=== PATIENT | female | born 1990 | race Caucasian/White ===

== ENCOUNTER 2018-03-25 21:27 | Emergency (ER) | payer OTHER ==
[2018-03-25] MEDS ORDERED: HALOPERIDOL LACTATE INJ 5 MG/1 ML VIAL IV ONE (22:03)
[2018-03-25] MEDS ORDERED: METHYLPREDNISOLONE INJ 500 MG VIAL IV ONE (22:30)
--- NOTE | 2018-03-25 22:31 | ER Document Report ---
ED General - General Chief Complaint: Numbness Stated Complaint: NUMBNESS Time Seen by Provider: 03/25/18 22:02 Notes: Patient is a 27-year-old female with a past medical history of multiple sclerosis who presents with 1 week of intermittent numbness and spasming of her left upper extremity, left neck and left face. She states that these episodes occur abruptly without any significant warning and typically last 5 minutes. They then spontaneously resolve without intervention. She denies any history of similar symptoms in the past. She saw her neurologist regarding this issue, had an MRI of the cervical spine done but is unaware of the results. She states that her MS has typically involved only her right side so she is concerned that this could be an alternative pathology. She denies any current symptoms. Nothing seems to improve or worsen her symptoms when they are present. She denies any headache, confusion, fever or constitutional symptoms. No head trauma. TRAVEL OUTSIDE OF THE [place] IN LAST 30 DAYS: No Past Medical History - General Information source: Patient - Social History Smoking Status: Never Smoker Frequency of alcohol use: None Drug Abuse: None Lives with: Spouse/Significant other Family History: Reviewed & Not Pertinent Review of Systems - Review of Systems Notes: Constitutional: Negative for fever. HENT: Negative for sore throat. Eyes: Negative for visual changes. Cardiovascular: Negative for chest pain. Respiratory: Negative for shortness of breath. Gastrointestinal: Negative for abdominal pain, vomiting or diarrhea. Genitourinary: Negative for dysuria. Musculoskeletal: Negative for back pain. Skin: Negative for rash. Neurological: Positive for left upper extremity spasming and numbness 10 point ROS negative except as marked above and in HPI. Physical Exam - Vital signs Vitals: Temp Pulse Resp BP Pulse Ox 98.8 F 62 16 117/74 99 03/25/18 21:52 03/25/18 21:52 03/25/18 21:52 03/25/18 21:52 03/25/18 21:52 Interpretation: Normal Notes: PHYSICAL EXAMINATION: GENERAL: Well-appearing, well-nourished and in no acute distress. HEAD: Atraumatic, normocephalic. EYES: Pupils equal round and reactive to light, extraocular movements intact, sclera anicteric, conjunctiva are normal. ENT: nares patent, oropharynx clear without exudates. Moist mucous membranes. NECK: Normal range of motion, supple without lymphadenopathy LUNGS: Breath sounds clear to auscultation bilaterally and equal. No wheezes rales or rhonchi. HEART: Regular rate and rhythm without murmurs ABDOMEN: Soft, nontender, normoactive bowel sounds. No guarding, no rebound. No masses appreciated. EXTREMITIES: Normal range of motion, no pitting or edema. No cyanosis. NEUROLOGICAL: Face symmetric. Tongue protrudes midline. Extraocular motions intact. Pupils are 2 mm and equally reactive. Normal speech, normal gait. 5 out of 5 strength in both the distal and proximal upper and lower extremities bilaterally. Sensation is grossly intact throughout. Finger to nose testing normal. Pronator drift normal. PSYCH: Normal mood, normal affect. SKIN: Warm, Dry, normal turgor, no rashes or lesions noted. Course - Re-evaluation Re-evalutation: 03/25/18 22:26 Patient presents with 1 week of intermittent left upper extremity, left neck and left face numbness and weakness. She has no symptoms or deficits at this time. Symptoms are intermittent, lasts for approximately 5 minutes and then spontaneously resolved. A full neurologic assessment is unremarkable. She denies any headache, nausea, vomiting or confusion. No fever or constitutional symptoms. The patient does have a history of multiple sclerosis and her clinical history appears to be most consistent with likely new lesions triggering her symptoms. Will obtain a CT of the head, [facility] although I do not have the ability to get an MRI today. Will also give a dose of steroids. 03/26/18 01:17 CT head unremarkable. Labs unremarkable. Patient remains without any focal neurologic deficits. At this time will discharge with return precautions and follow-up recommendations. Verbal discharge instructions given a the bedside and opportunity for questions given. Medication warnings reviewed. Patient is in agreement with this plan and has verbalized understanding of return precautions and the need for primary care follow-up in the next 24-72 hours. - Vital Signs Vital signs: Temp Pulse Resp BP Pulse Ox 98.8 F 62 16 117/74 99 03/25/18 21:52 03/25/18 21:52 03/25/18 21:52 03/25/18 21:52 03/25/18 21:52 - Laboratory Result Diagrams: 03/25/18 00:42 03/25/18 00:42 - Diagnostic Test Radiology reviewed: Image reviewed, Reports reviewed Radiology results interpreted by me: 03/26/18 01:14 CT head: No acute cranial bleed or mass Discharge - Discharge Clinical Impression: Left upper extremity numbness, Left upper extremity spasm, Left facial numbness , Multiple sclerosis Condition: Good Disposition: HOME, SELF-CARE Additional Instructions: Your CT scan is normal today. Your labs are also unremarkable. Please take the steroids as prescribed. Please do follow-up with your neurologist at your earliest ability. Your symptoms likely related to your multiple sclerosis and a repeat MRI of your brain is likely appropriate. Prescriptions: Prednisone [Deltasone 20 mg Tablet] 3 tab PO DAILY 5 Days tablet
--- NOTE | 2018-03-26 00:11 | RADIOLOGY REPORT (SQ) ---
EXAM DESCRIPTION: CT HEAD WITHOUT IV CONTRAST COMPLETED DATE/TME: 03/25/2018 22:25 CLINICAL HISTORY: left sided weakness COMPARISON: None available TECHNIQUE: Axial CT of the head obtained from the skull apex to the skull base without contrast. FINDINGS: No acute intracranial hemorrhage identified. No mass, mass effect, shift of the midline, abnormal extra-axial fluid collection or CT evidence of acute ischemic change identified. The ventricular system is unremarkable. No acute abnormalities of the supratentorial white matter, basal ganglia, cerebellum, or brainstem. The visualized paranasal sinuses and the mastoids are clear. No skull fracture identified. Visualized orbits and globes are unremarkable. DLP: 990.56 mGy-cm IMPRESSION: 1. No acute intracranial abnormality identified. This exam was performed according to our departmental dose-optimization program, which includes automated exposure control, adjustment of the mA and/or kV according to patient size and/or use of iterative reconstruction technique.
[2018-03-26 00:53] LABS: ABSOLUTE BASOPHILS # (AUTO) 0.1 10^3/uL (0.0-0.2); ABSOLUTE EOSINOPHILS # (AUTO) 0.2 10^3/uL (0.0-0.6); ABSOLUTE LYMPHOCYTES (AUTO) 1.7 10^3/uL (0.5-4.7); ABSOLUTE MONOCYTES (AUTO) 0.5 10^3/uL (0.1-1.4); ABSOLUTE NEUT (AUTO) 2.5 10^3/uL (1.7-8.2); BASOPHILS % (AUTO) 1.5 % (0-2); EOSINOPHILS % (AUTO) 3.6 % (0-6); HEMATOCRIT 37.8 % (36.0-47.0); HEMOGLOBIN 13.4 g/dL (12.0-15.5); LYMPHOCYTES % (AUTO) 34.1 % (13-45); MEAN CORPUSCULAR HEMOGLOBIN 28.9 pg (27.0-33.4); MEAN CORPUSCULAR HGB CONC 35.3 g/dL (32.0-36.0); MEAN CORPUSCULAR VOLUME 82 fl (80-97); MONOCYTES % (AUTO) 10.2 % (3-13); PLATELET COUNT 218 10^3/uL (150-450); RED BLOOD COUNT 4.62 10^6/uL (3.72-5.28); RED CELL DISTRIBUTION WIDTH 13.9 % (11.5-14.0); SEGMENTED NEUTROPHILS % (AUTO) 50.6 % (42-78); TOTAL CELLS COUNTED % (AUTO) 100 %; WHITE BLOOD COUNT 4.8 10^3/uL (4.0-10.5)
[2018-03-26 02:04] LABS: ANION GAP 15 (5-19); BLOOD UREA NITROGEN 10 mg/dL (7-20); CALCIUM 9.6 mg/dL (8.4-10.2); CARBON DIOXIDE 23 mmol/L (22-30); CHLORIDE 105 mmol/L (98-107); GLUCOSE 83 mg/dL (75-110); POTASSIUM 3.9 mmol/L (3.6-5.0); SODIUM 143.1 mmol/L (137-145)
[2018-03-26 06:46] VITALS: BP 116/64
== END 2018-03-26 02:57 | disposition home or self-care (01) ==
LOC: ER 21:27
DX: G35 Multiple sclerosis (principal); R20.0 Anesthesia of skin; R25.2 Cramp and spasm; R53.1 Weakness
CPT/HCPCS: 99284; 96374; 36415; 84703; 85025; 80048; 70450; J2920